=== PATIENT | female | born 1950 | race Caucasian/White ===

== ENCOUNTER 2017-10-27 08:39 | Outpatient (CLI) | payer BC, MEDICARE ==
--- NOTE | 2017-10-27 17:51 | ULT ---
ABDOMINAL ULTRASOUND 10/26/17 Ultrasonography of the abdomen was performed for evaluation of right upper quadrant pain. The patient has had a prior cholecystectomy. The liver is mildly enlarged measuring 16.8 cm in oblique sagittal length. It is somewhat echo dense suggesting fatty infiltration. This is consistent with a prior CT scan. The pancreas is partially obscured by gas, but the visible areas seem normal. The common bile duct wa s 8 to 9 mm in caliber which is normal for a post cholecystectomy patient. Portal venous flow was tow ards the liver. The spleen was normal in size. The right kidney was 10.0 cm long and the left is 11.1 cm. No mass or hydronephrosis was seen in either. 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 The aorta and inferior vena cava were unremarkable. IMPRESSION: 1. No acute abdominal findings. 2. Status post cholecystectomy. 3. Mild hepatomegaly and diffuse fatty infiltration. POS: HOME
== END 2017-10-27 08:40 | disposition home or self-care (01) ==
LOC: BURULT 08:39
PROVIDERS: ATTEND Physician Assistant
DX: R10.11 Right upper quadrant pain (principal); K76.0 Fatty (change of) liver, not elsewhere classified; Z90.49 Acquired absence of other specified parts of digestive tract
CPT/HCPCS: 76700

== ENCOUNTER 2020-02-07 15:14 | Outpatient (CLI) | payer MEDICARE, BC | END 2020-02-07 15:15 | disposition home or self-care (01) | LOC: BUREKG 15:14 | PROVIDERS: ATTEND Physician Assistant | DX: R55 Syncope and collapse (principal) | CPT/HCPCS: 93005; 93010 ==